=== PATIENT | male | born 1960 | race Hispanic/Latino ===

== ENCOUNTER 2025-10-14 09:52 | Day surgery (SDC) | payer MEDICARE ==
[2025-10-13 11:47] VITALS: BMI 27.1
[2025-10-14] MEDS ORDERED: Lidocaine 2% MPF 10 ML AMP (For Epidural Use) ONE (10:59)
[2025-10-14] MEDS ORDERED: Bupivacaine/Epinephrine 0.25% 30 ML VIAL ONE (10:59)
[2025-10-14] MEDS ORDERED: CEFAZOLIN 2 GM VIAL ONE (11:06)
[2025-10-14] MEDS ORDERED: Calcium Chloride 1 GM/10 ML Abboject SYRINGE ONE (11:16)
[2025-10-14] MEDS ORDERED: PROPOFOL 20 ML ONE (11:37)
== END 2025-10-14 12:40 | disposition home or self-care (01) ==
LOC: CSHSDC 09:52
PROVIDERS: ATTEND Surgery
PROC: 0JH60WZ Insertion of Totally Implantable Vascular Access Device into Chest Subcutaneous Tissue and Fascia, Open Approach (ICD-10-PCS; principal; 2025-10-14)
DX: C15.9 Malignant neoplasm of esophagus, unspecified (principal); C78.7 Secondary malignant neoplasm of liver and intrahepatic bile duct; C78.00 Secondary malignant neoplasm of unspecified lung; J44.9 Chronic obstructive pulmonary disease, unspecified; Z88.0 Allergy status to penicillin
CPT/HCPCS: 36561; 71045; 71260; 74177; 93005; C1788; J1642; J2250; J2704; J3010; Q9967; 93010